=== PATIENT | female | born 1980 | race American Indian/Alaskan Native ===

== ENCOUNTER 2019-07-24 09:23 | Inpatient (IN) | payer BC, MEDICAID ==
[2019-07-24] MEDS ORDERED: fentaNYL 100 MCG/2 ML INJ IV PRN (10:30)
[2019-07-24] MEDS ORDERED: TERBUTALINE 1 MG/1 ML INJ SUB-Q PRN (10:30)
[2019-07-24] MEDS ORDERED: ePHEDrine SULFATE 50 MG/1 ML INJ IV PRN (10:30)
[2019-07-24] MEDS ORDERED: LIDOCAINE (2%) 20 MG/1 ML VIAL 20 ML MDV INFILTRATI ONE (10:30)
[2019-07-24] MEDS ORDERED: MAGNESIUM SULFATE 4 GM/100 ML BAG IV ONE (10:36)
--- NOTE | 2019-07-24 10:40 | History and Physical Report ---
History of Present Illness Date of examination: 07/24/19 Date of admission: 07/24/2019 Chief complaint: Contractions History of present illness: 38 year old presents to L&D in early labor with elevated blood pressures. 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 Was able to look records up via computer but no hard copy of records is available. LMP unknown. EDC by US is 07/21/2019. significant for the following: AMA, polyhydramnios, rubella nonimmune, vitamin D deficiency (supplemented with vitamin D), GBS positive, anemia, trichomonas (OSMANY negative). labs are as follows: O+, antibody screen negative, rubella nonimmune, hepatitis B surface antigen negative, HIV negative, RPR nonreactive, pap negative, AFP negative, NIPT negative, hemoglobin electrophoresis AA, gonorrhea negative, chlamydia negative, GBS positive, trichomonas positive/negative, 1 hour sugar test 134. 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 ). denies: abnormal PAP smear, chlamydia, gonorrhea, hepatitis B, hepatitis C, herpes, HIV, syphilis Family/Genetic History: none Social history: single, full code. denies: smoking, alcohol abuse, prescription drug abuse, IV drug use - Obstetrical History Expected Date of Delivery: 07/21/19 Actual Gestation: 40 Week(s) 3 Day(s) : 3 Para: 0 Hx # Term Pregnancies: 0 Number of Pregnancies: 0 Spontaneous Abortions: 0 Induced : 2 Number of Living Children: 0 Medications and Allergies Allergies Allergy/AdvReac Type Severity Reaction Status Date / Time No Known Allergies Allergy Unverified 07/24/19 10:42 Active Meds: Active Medications Ephedrine Sulfate (Ephedrine Sulfate) 10 mg IV Q2M PRN PRN Reason: Hypotension Fentanyl (Sublimaze) 100 mcg IV Q2H PRN PRN Reason: Labor Pain Hydralazine HCl (Apresoline) 5 mg IV ONCE ONE Stop: 07/24/19 10:41 Oxytocin/Sodium Chloride (Pitocin/Ns 20 Unit/1000ml Drip) 20 units in 1,000 mls @ 125 mls/hr IV DIRECT [place] Lactated Ringer's (Lactated Ringers) 1,000 mls @ 125 mls/hr IV DIRECT [place] Ampicillin Sodium (Ampicillin/Ns 2 Gm/100 Ml) 2 gm in 100 mls @ 100 mls/hr IV ONCE ONE; Protocol Stop: 07/24/19 11:29 Ampicillin Sodium (Ampicillin/Ns 1 Gm/50 Ml) 1 gm in 50 mls @ 100 mls/hr IV Q4HR [place]; Protocol Magnesium Sulfate (Magnesium Sulfate 40gm/1000ml) 40 gm in 1,000 mls @ 50 mls/hr IV DIRECT [place] Magnesium Sulfate (Magnesium Sulfate 4gm/100ml) 4 gm in 100 mls @ 300 mls/hr IV ONCE ONE Stop: 07/24/19 10:55 Labetalol HCl (Labetalol) 200 mg PO BID [place] Lidocaine (Xylocaine 2%) 20 ml INFILTRATI ONCE ONE Stop: 07/24/19 10:31 Terbutaline Sulfate (Brethine) 0.25 mg SUB-Q ONCE PRN PRN Reason: Hyperstimulation/Hypertonicity Review of Systems All systems: negative (contractions) - Vital Signs Vital signs: Vital Signs Temp Pulse Resp BP Pulse Ox 98.4 F 78 16 152/87 100 07/24/19 09:37 07/24/19 09:37 07/24/19 09:37 07/24/19 09:37 07/24/19 09:37 Temp Pulse Resp BP Pulse Ox 98.4 F 75 16 195/92 99 07/24/19 09:37 07/24/19 10:34 07/24/19 09:37 07/24/19 10:23 07/24/19 10:34 - Physical Exam Cardiovascular: Regular rate, Normal S1, Normal S2 Lungs: Positive: Clear to auscultation Abdomen: Positive: normal appearance, soft. Negative: distention, tenderness, guarding, rigidity Genitourinary (Female): Positive: normal external genitalia, normal perenium. Negative: perineal/vulvar lesions (no lesions seen on careful exam with bright light upon admission) Vagina: Positive: normal moisture Uterus: Positive: enlarged (S=D) Anus/Rectum: Positive: normal perianal skin Extremities: Positive: normal. Negative: tenderness, edema - Obstetrical FHR: category 2 FHR comments: FHR deceleration noted in triage, to 80s and 90s, lasting several minutes with gradual return to baseline. Now FHR baseline is 145-150 with moderate variability and accelerations. Uterine Contraction Monitor Mode: External Cervical Dilatation: 2 Cervical Effacement Percentage: 70 station: -3 Uterine Contraction Pattern: Regular Uterine Contraction Intensity: Moderate Results Result Diagrams: 07/24/19 10:30 07/24/19 10:30 All other labs normal. Assessment and Plan A: at 40 weeks, 3 days gestation. Early labor. Elevated blood pressures, some severe range. AMA. FHR deceleration. P: Admit. Preeclamptic labs, urine drug screen. IV Hydralazine. Oral Labetalol. Magnesium Sulfate. Bedrest, SCDs, Waggoner catheter. Continuous EFM. Pitocin augmentation of labor. Discussed with patient risks and benefits of Pitocin augmentation of labor. Patient consented to Pitocin augmentation of labor. Consulted with Dr. Larkin re: this patient, who states he agrees with above plan.
[2019-07-24] MEDS ORDERED: AMPICILLIN/NS 2 GM/100 ML 2 GM/100 ML BAG IV ONE (10:48)
[2019-07-24] MEDS ORDERED: hydrALAZINE 20 MG/1 ML INJ IV ONE (11:00)
[2019-07-24] MEDS ORDERED: MAGNESIUM SULFATE 40GM/1000ML 40 GM/1,000 ML BAG IV SCH (11:00)
[2019-07-24] MEDS ORDERED: LACTATED RINGERS 1,000 ML IV SCH ×2 (11:00→23:00)
[2019-07-24] MEDS ORDERED: OXYTOCIN 20 UNIT/1000ML DRIP 20 UNITS/1,000 ML BAG IV SCH ×2 (11:00→23:00)
[2019-07-24 11:12] LABS: Hematocrit 39.6 % (30.3-42.9); Hemoglobin 13.4 gm/dl (10.1-14.3); Mean Corpuscular HGB Conc 34 % (30-34); Mean Corpuscular Volume 91 fl (79-97); Red Blood Count 4.34 M/mm3 (3.65-5.03); Red Cell Distribution Width 13.2 % (13.2-15.2)
[2019-07-24 11:36] LABS: Alanine Aminotransferase 43 units/L (7-56); Albumin 3.7 g/dL (3.9-5); BUN/Creatinine Ratio 14; Blood Urea Nitrogen 7 mg/dL (7-17); Calcium 8.9 mg/dL (8.4-10.2); Hemolysis Index 36; Uric Acid 6.6 mg/dL (3.5-7.6)
[2019-07-24 11:46] LABS: Bilirubin,Urine NEG (Negative); Blood,Urine SM (Negative); Color,Urine Straw (Yellow); Mucus,Urine FEW /HPF; Protein,Urine <15 mg/dL mg/dL (Negative); Urobilinogen,Urine < 2.0 mg/dL (<2.0); WBC,Urine < 1.0 /HPF (0.0-6.0)
[2019-07-24 11:53] LABS: Amphetamine Screen,Urine PRESUMPTIVE NEGATIVE; Benzodiazepines Screen,Urine PRESUMPTIVE NEGATIVE; Cannabinoid Screen,Urine PRESUMPTIVE NEGATIVE; Cocaine Screen,Urine PRESUMPTIVE NEGATIVE; Methadone Screen,Urine PRESUMPTIVE NEGATIVE; Opiate Screen,Urine PRESUMPTIVE NEGATIVE
[2019-07-24 12:08] LABS: Platelet Count 142 K/mm3 (140-440)
[2019-07-24] MEDS ORDERED: OXYTOCIN DRIP 30 UNITS/500 ML BAG IV SCH (13:00)
[2019-07-24] MEDS: AMPICILLIN/NS 1 GM/50 ML 1 GM/50 ML BAG IV SCH ×2 (17:00→21:20)
[2019-07-24] MEDS ORDERED: SODIUM CHLORIDE P/F VIAL 10 ML 10 ML ONE (20:39)
[2019-07-24] MEDS ORDERED: DEXMEDETOMIDINE 200 MCG/2 ML VIAL IV ONE (20:39)
[2019-07-24] MEDS ORDERED: NALOXONE 2 MG/2 ML INJ IV PRN (20:41)
--- NOTE | 2019-07-24 20:42 | Anesthesia Consultation ---
Anesthesia Consult and Med Hx Date of service: 07/24/19 - Airway Anesthetic Teeth Evaluation: Good ROM Head & Neck: Adequate Mental/Hyoid Distance: Adequate Mallampati Class: Class II Intubation Access Assessment: Probably Good - Pulmonary Exam CTA: Yes - Cardiac Exam Cardiac Exam: RRR - Pre-Operative Health Status ASA Pre-Surgery Classification: ASA3 Proposed Anesthetic Plan: Epidural - Pulmonary Hx Asthma: No - Cardiovascular System Hx Hypertension: Yes (PIH) - Central Nervous System Hx Seizures: No Hx Psychiatric Problems: No - Endocrine Hx Renal Disease: No Hx Hypothyroidism: No Hx Hyperthyroidism: No - Hematic Hx Anemia: No Hx Sickle Cell Disease: No - Other Systems Hx Alcohol Use: No
[2019-07-24] MEDS ORDERED: fentaNYL-BUPIV 2 MCG/ML-0.125% 200 MCG/100 ML BAG EPIDURAL SCH (21:00)
[2019-07-24] MEDS: ePHEDrine SULFATE 50 MG/1 ML INJ IV PRN ×2 (22:10→22:20)
[2019-07-24] MEDS ORDERED: AZITHROMYCIN 500 MG in SODIUM CHLORIDE 0.9% 250ML 250 ML IV ONE (22:33)
[2019-07-24] MEDS ORDERED: BICITRA ORAL LIQD 30ML PO ONE (22:33)
[2019-07-24] MEDS ORDERED: METOCLOPRAMIDE 10 MG/2 ML INJ IV ONE (22:33)
[2019-07-24] MEDS ORDERED: FAMOTIDINE 20 MG/2 ML INJ IV ONE (22:33)
[2019-07-24] MEDS ORDERED: ceFAZolin/Water 2 GM/20 ML 2 GM/20 ML SYRINGE IV NR (23:00)
--- NOTE | 2019-07-25 00:12 | Event Note ---
Date: 07/25/19 Patient had low BPs after epidural placement, followed by several late FHR decelerations beginning at 21:52. Patient was positioned in left lateral, then right lateral positions. IV fluid bolus was given and ephedrine was given. Oxygen was applied per face mask at 10 LPM. Pitocin was turned off. Dr. Larkin was called to evaluate patient and FHR tracing. Dr. Larkin evaluated patient at 22:11. BPs improved with ephedrine and IV fluids and FHR returned to normal. FHR is still reassuring but BPs are again low. Cervix is 3/100/-[address] Larkin re: patient and low BPs despite interventions. Dr. Larkin states he will deliver patient by section. Discussed this plan with patient and family and OR team notified. Magnesium sulfate has been discontinued per MD order.
[2019-07-25] MEDS ORDERED: SODIUM BICARB 8.4% 50 MEQ/50 ML VIAL IV ONE (00:23)
[2019-07-25] MEDS ORDERED: LIDOCAINE MPF (2%) 20 MG/1 ML VIAL 5 ML ONE (00:23)
[2019-07-25] MEDS ORDERED: OXYTOCIN 10 UNIT/1 ML INJ ONE (00:49)
[2019-07-25] MEDS ORDERED: KETOROLAC 30 MG/1 ML INJ ONE (00:49)
--- NOTE | 2019-07-25 01:33 | Operative Report ---
Operative Report Operative Report: Date of procedure: 07/25/2019 Pre-operative diagnosis: 1. Intrauterine at 40 3/7 weeks 2. Preec lampsia 3. Non-reassuring surveillance Post-operative diagnosis: Same Procedure name(s): Primary low transverse section Surgeon: Arsalan Larkin MD Tree Surgeon Helper: None Anesthesia: Spinal anesthesia by Néstor Jarquin CRNA EBL: 1000 mL's Findings: A 3084 gm male infant Apgars 8 at 1 minute 9 at 5 minutes. Normal uterus with normal tubes and ovaries bilaterally. No evidence of abruption. Procedure: After the patient was prepped and draped in usual sterile fashion, and after satisfactory level of spinal anesthesia was obtained, the skin knife was used to make a transverse skin incision. The incision was incised down to layer of the fascia, which was nicked in the midline and extended laterally using the Bovie cautery. The rectus muscles were dissected off the rectus fascia both superiorly and inferiorly. The rectus bellies in the midline, and the peritoneum was entered under direct visualization. The peritoneal incision was extended superiorly and inferiorly, a bladder flap was created and the bladder blade was then placed. The uterus was scored in a curvilinear linear fashion, entered in the midline revealing clear amniotic fluid. The infant's head was delivered onto the surgical field, and the oropharynx and nasopharynx were bulb suctioned. The rest of the infants body delivered and the cord was doubly clamped and cut and the infant was handed to the awaiting respiratory team. The placenta was manually removed from the uterus, and the uterus removed from its normal anatomical position. After gentle uterine lavage, the incision was inspected and found to be without extensions. It was therefore closed in 2 layers using 0 Vicryl suture in a running interlocking fashion, the second layer imbricating the first. After good hemostasis was achieved, copious amounts or irrigation was performed, and the gutters were suctioned free of blood and blood clots. The uterus was then returned to its normal anatomical position, and the peritoneum was re- approximated using 3-0 Vicryl suture in a running interlocking fashion, and then the rectus muscles were loosely re-approximated using 3-0 Vicryl suture in a [id number] configuration. The fascia was then re-approximated using 0 Vicryl suture in running interlocking fashion. The subcutaneous layer was made hemostatic using Bovie cautery, and the skin edges re-approximated using 4-0 Vicryl suture in a sub-cuticular fashion. Patient tolerated the procedure well was transported to recovery in stable condition.
[2019-07-25] MEDS ORDERED: ACETAMINOPHEN 325 MG TAB PO PRN (01:36)
[2019-07-25] MEDS ORDERED: WITCH HAZEL/ GLYCERIN PAD TP PRN (01:36)
[2019-07-25] MEDS ORDERED: SIMETHICONE 80 MG CHEW TAB PO PRN (01:36)
[2019-07-25] MEDS ORDERED: NALOXONE 0.4 MG/1 ML INJ IV PRN (01:36)
[2019-07-25] MEDS ORDERED: MAGNESIUM HYDROXIDE (MOM) ORAL LIQD UDC PO PRN (01:36)
[2019-07-25] MEDS ORDERED: IBUPROFEN 800 MG TAB PO PRN (01:36)
[2019-07-25] MEDS ORDERED: PROMETHAZINE 25 MG RECT SUPP PR PRN (01:36)
[2019-07-25] MEDS ORDERED: SENNOSIDES 8.6 MG TAB PO PRN (01:36)
[2019-07-25] MEDS ORDERED: ONDANSETRON 4 MG/2 ML INJ IV PRN (01:36)
[2019-07-25] MEDS ORDERED: LANOLIN/ZINC/DIMETHICONE (LANSINOH) 7 GM TP PRN (01:36)
[2019-07-25] MEDS ORDERED: OXYTOCIN 20 UNIT/1000ML DRIP 20 UNITS/1,000 ML BAG IV SCH (02:00)
[2019-07-25] MEDS ORDERED: D5W/LACTATED RINGERS 1,000 ML IV SCH (02:00)
--- NOTE | 2019-07-25 02:03 | Post Anesthesia Evaluation ---
- Post Anesthesia Evaluation Patient Participated: Yes Airway Patent: Yes Stable Respiratory Function: Yes Nausea/Vomiting: No Temp > 96.8F: Yes Pain Manageable: Yes Adequeate Hydration: Yes Anesthesia Complications: No Block Receding Appropriately: Yes
[2019-07-25] MEDS ORDERED: LACTATED RINGERS 1,000 ML ONE (02:52)
[2019-07-25] MEDS: KETOROLAC 30 MG/1 ML INJ IV PRN ×3 (08:34→21:21)
[2019-07-25] MEDS: ceFAZolin/NS 1 GM/50 ML 1 GM/50 ML BAG IV SCH ×2 (08:48→16:09)
[2019-07-25 12:27] LABS: Hematocrit 26.1 % (30.3-42.9)
[2019-07-25] MEDS: HYDROcodone/ACETAMINOPHEN 5-325 MG TAB PO PRN (13:24)
[2019-07-25] MEDS: FERROUS SULFATE 325 MG TAB PO SCH ×2 (13:36→18:16)
[2019-07-25] MEDS: PRENATAL VIT27-FE FUMARATE-FOLIC ACID VIT TAB PO SCH ×2 (13:36→18:16)
[2019-07-25] MEDS: oxyCODONE /ACETAMINOPHEN 5-325MG TAB PO PRN (23:38)
[2019-07-26] MEDS ORDERED: MEASLES, MUMPS & RUBELLA 12,500 UNIT/0.5 ML VACCINE SUB-Q ONE (01:37)
[2019-07-26] MEDS ORDERED: TETANUS,DIPH,PERTUSS(ACELL) VACCINE 0.5 ML SYRINGE IM ONE (01:38)
[2019-07-26] MEDS: oxyCODONE /ACETAMINOPHEN 5-325MG TAB PO PRN ×3 (05:27→17:54)
[2019-07-26] MEDS: FERROUS SULFATE 325 MG TAB PO SCH ×2 (09:37→22:03)
[2019-07-26] MEDS: PRENATAL VIT27-FE FUMARATE-FOLIC ACID VIT TAB PO SCH (09:37)
--- NOTE | 2019-07-26 10:29 | Progress Note ---
Assessment and Plan - Patient Problems (1) S/P primary low transverse Current Visit: Yes Status: Acute Plan to address problem: Continue routine PP orders Keep dressing dry and intact, remove on POD#2 Anticipate d/c home in 48 hrs (2) Anemia Current Visit: Yes Status: Acute Qualifiers: Anemia type: other cause Other causes of anemia: acute posthemorrhagic Qualified Code(s): D62 - Acute posthemorrhagic anemia Plan to address problem: Asymptomatic Continue oral daily iron supplementation as directed Iron rich diet Subjective - Subjective Date of service: 07/26/19 Principal diagnosis: S/P primary C/S; POD#1 Interval history: See admission H & P; OB operative note and PP progress notes Patient reports: appetite normal, voiding normally, pain well controlled (with medications), flatus, ambulating normally, no bowel movement [place]: doing well, bottle feeding (and ) Objective - Vital Signs Latest vital signs: Vital Signs Temp Pulse Resp BP Pulse Ox 07/26/19 05:27 18 07/26/19 03:33 18 07/26/19 02:20 98.1 F 91 H 18 115/74 99 07/25/19 23:38 18 07/25/19 21:27 98.9 F 85 20 112/71 99 07/25/19 21:21 18 07/25/19 16:12 98.9 F 79 20 120/71 99 07/25/19 11:54 99.3 F 88 20 111/69 98 Intake and Output 07/25/19 07/26/19 07/26/19 23:59 07:59 15:59 Intake Total 360 260 120 Output Total 200 Balance 160 260 120 Intake: Oral 120 120 Intake, Free Water 240 260 Output: Urine 200 Void 200 Other: Total, Intake Amount 120 120 Total, Output Amount 200 # Voids Void 1 2 1 - Exam Breasts: Present: normal Cardiovascular: Present: Regular rate Lungs: Present: Normal air movement Abdomen: Present: soft, tenderness Uterus: Present: firm, fundal height below umbilicus (U-1) Extremities: Present: normal Deep Tendon Reflex Grade: Normal +2 Incision: Present: dressed (no shawdow drainage or bleeding noted) - Labs Labs: Abnormal lab results 07/25/19 Range/Units 12:04 Hgb 9.0 L D (10.1-14.3) gm/dl Hct 26.1 L D (30.3-42.9) %
[2019-07-26] MEDS: IBUPROFEN 800 MG TAB PO SCH (16:40)
[2019-07-26] MEDS: HYDROcodone/ACETAMINOPHEN 5-325 MG TAB PO PRN (22:06)
[2019-07-27] MEDS: IBUPROFEN 800 MG TAB PO SCH ×4 (00:06→23:37)
[2019-07-27] MEDS: PRENATAL VIT27-FE FUMARATE-FOLIC ACID VIT TAB PO SCH (09:36)
--- NOTE | 2019-07-27 12:48 | Progress Note ---
Assessment and Plan A: POD #2 Preeclampsia Asymptomatic Anemia P: Follow Routine Postop Oders Continue FeSO4 as ordered Replace Steri-strips Anticipate D/C home in AM Subjective - Subjective Date of service: 07/27/19 Principal diagnosis: S/P primary C/S; POD#1 Patient reports: appetite normal, voiding normally, pain well controlled, flatus, ambulating normally [place]: doing well, bottle feeding (and ) Objective - Vital Signs Latest vital signs: Vital Signs Temp Pulse Resp BP BP Pulse Ox 07/27/19 08:21 98.1 F 75 18 106/66 99 07/27/19 00:26 97.8 F 83 18 123/72 99 07/26/19 16:45 97.5 F L 79 20 109/64 Intake and Output 07/26/19 07/27/19 07/27/19 22:59 06:59 14:59 Intake Total 240 Balance 240 Intake: Oral 240 Other: Total, Intake Amount 240 # Voids Void 1 - Exam Breasts: Present: normal Cardiovascular: Present: Regular rate Lungs: Present: Clear to auscultation, Normal air movement Abdomen: Present: normal appearance, soft, normal bowel sounds Uterus: Present: normal, firm, fundal height below umbilicus Extremities: Present: normal Incision: Present: intact, other (moderate amount of blood on steri strips; incision well approximated; oozing a small amount of blood)
[2019-07-27] MEDS: oxyCODONE /ACETAMINOPHEN 5-325MG TAB PO PRN ×2 (12:54→21:24)
[2019-07-27] MEDS: FERROUS SULFATE 325 MG TAB PO SCH (21:24)
[2019-07-28] MEDS: oxyCODONE /ACETAMINOPHEN 5-325MG TAB PO PRN ×2 (03:11→11:15)
[2019-07-28] MEDS: IBUPROFEN 800 MG TAB PO SCH (08:06)
[2019-07-28] MEDS: FERROUS SULFATE 325 MG TAB PO SCH (11:14)
[2019-07-28] MEDS: PRENATAL VIT27-FE FUMARATE-FOLIC ACID VIT TAB PO SCH (11:15)
--- NOTE | 2019-07-28 11:22 | Discharge Summary ---
Providers - Providers Date of Admission: 07/24/19 11:37 Date of discharge: 07/28/19 Attending physician: RAJIV FITCH MD Primary care physician: RAJIV FITCH MD Hospitalization Delivery: Incision: normal, erythematous (There is some bruising around the incision but no indurations were palpable. The bruising was pronounced over the mons pubis and labia and again no indurations were felt. The mons and labia were edematous from gravity in a semirecumbent position.), dry, intact Disposition: DC-30 STILL A PATIENT Plan - Discharge Medications Prescriptions: oxyCODONE /ACETAMINOPHEN [Percocet 5/325] 1 tab PO Q6HR PRN #30 tablet PRN Reason: Pain - Provider Discharge Summary Additional instructions: [] Smoking cessation referral if applicable(refer to patient education folder for contact #) [] Refer to [facility]'s [facility] Booklet Call your doctor immediately for: * Fever > 100.5 * Heavy vaginal bleeding ( >1 pad per hour) * Severe persistent headache * Shortness of breath * Reddened, hot, painful area to leg or breast * Drainage or odor from incision. * Keep incision clean and dry at all times and follow doctor's instructions regarding bathing/showering - Follow up plan Follow up: RAJIV FITCH MD [Primary Care Provider] - 7 Days
[2019-07-28] MEDS: HYDROcodone/ACETAMINOPHEN 5-325 MG TAB PO PRN (13:00)
[2019-07-28 14:03] VITALS: BP 102/62
== END 2019-07-28 14:07 | disposition home or self-care (01) | DRG 787 ==
LOC: TRG 09:23 → LD 11:37 → OB 07-25 04:31
PROVIDERS: ADMIT Obstetrics & Gynecology; ATTEND Obstetrics & Gynecology
PROC: 10D00Z1 Extraction of Products of Conception, Low, Open Approach (ICD-10-PCS; principal; 2019-07-25)
PROC: 3E0234Z Introduction of Serum, Toxoid and Vaccine into Muscle, Percutaneous Approach (ICD-10-PCS; 2019-07-26)
PROC: 3E0134Z Introduction of Serum, Toxoid and Vaccine into Subcutaneous Tissue, Percutaneous Approach (ICD-10-PCS; 2019-07-26)
DX: O99.824 Streptococcus B carrier state complicating childbirth (principal); D62 Acute posthemorrhagic anemia; O14.94 Unspecified pre-eclampsia, complicating childbirth; O13.4 Gestational [pregnancy-induced] hypertension without significant proteinuria, complicating childbirth; O76 Abnormality in fetal heart rate and rhythm complicating labor and delivery; O90.81 Anemia of the puerperium; Z23 Encounter for immunization; Z37.0 Single live birth; Z3A.40 40 weeks gestation of pregnancy
CPT/HCPCS: 36415; 80053; 80307; 81001; 83615; 83735; 84550; 85014; 85018; 85027; 86850; 86900; 86901; G0378; J0290; J0456; J0690; J1885; J2590; J2765; J3010; J3105; J3475; J3490; J7050; J7120; J7121

== ENCOUNTER 2019-07-31 00:08 | Emergency (ER) | payer BC, MEDICAID ==
--- NOTE | 2019-07-31 02:06 | Emergency Department Report ---
ED General Adult HPI - General Chief complaint: Wound/Laceration Stated complaint: C-SETION 6 DAYS AGO,BRUSING AND PAIN Time Seen by Provider: 07/31/19 01:57 Source: patient Mode of arrival: Ambulatory Limitations: No Limitations - History of Present Illness Initial comments: Mrs. Ochoa is a very pleasant 38 yo female who presents with brusings right a bdomen 6 days s/p section on 07/25/2019. According to Dr. Larkin's operative note, Mrs. Ochoa had preeclampsia. She otherwise did well. Pain controlled with Percocet. She has noted bruising in pelvis and right lower abdomen. No bleeding from the wound. No dizziness. No headache. No chest pain. No shortness of breath. -: Gradual, days(s) (2) Location: abdomen, pelvis Quality: aching (pain), other (new bruising) Consistency: constant Improves with: none Worsens with: none Associated Symptoms: denies other symptoms Treatments Prior to Arrival: none - Related Data Previous Rx's Medication Instructions Recorded Last Taken Type oxyCODONE /ACETAMINOPHEN [Percocet 1 tab PO Q6HR PRN #30 tablet 07/25/19 Unknown Rx 5/325] Allergies Allergy/AdvReac Type Severity Reaction Status Date / Time No Known Allergies Allergy Unverified 07/24/19 10:42 ED Review of Systems ROS: Stated complaint: C-SETION 6 DAYS AGO,BRUSING AND PAIN Other details as noted in HPI Comment: All other systems reviewed and negative Constitutional: denies: fever, malaise Respiratory: denies: cough Cardiovascular: denies: chest pain Gastrointestinal: abdominal pain Hematological/Lymphatic: easy bruising ED Past Medical Hx - Past Medical History Previous Medical History?: Yes Hx Hypertension: Yes (PIH) Hx Diabetes: No Hx Deep Vein Thrombosis: No Hx Renal Disease: No Hx Sickle Cell Disease: No Hx Seizures: No Hx Asthma: No Hx HIV: No - Surgical History Past Surgical History?: Yes Additional Surgical History: - Social History Smoking Status: Never Smoker Substance Use Type: None - Medications Home Medications: Home Medications Medication Instructions Recorded Confirmed Last Taken Type oxyCODONE /ACETAMINOPHEN [Percocet 1 tab PO Q6HR PRN #30 tablet 07/25/19 Unkno wn Rx 5/325] ED Physical Exam - General Limitations: No Limitations General appearance: alert, in no apparent distress - Head Head exam: Present: atraumatic, normocephalic - Eye Eye exam: Present: normal appearance - ENT ENT exam: Present: mucous membranes moist - Neck Neck exam: Present: normal inspection, full ROM. Absent: tenderness, meni ngismus - Respiratory Respiratory exam: Present: normal lung sounds bilaterally. Absent: respiratory distress, wheezes, rales, rhonchi - Cardiovascular Cardiovascular Exam: Present: regular rate, normal rhythm, normal heart sounds. Absent: systolic murmur, diastolic murmur, rubs, gallop - GI/Abdominal GI/Abdominal exam: Present: soft, distended, normal bowel sounds, other (c-sec tion incision dried blood steristrips in place ecchymosis pubic region and right lower quadrant). Absent: tenderness, guarding, rebound - Extremities Exam Extremities exam: Present: normal inspection - Neurological Exam Neurological exam: Present: alert, oriented X3 - Psychiatric Psychiatric exam: Present: normal affect, normal mood - Skin Skin exam: Present: warm, dry, intact, normal color. Absent: rash ED Course Vital Signs 07/31/19 00:12 Temperature 98.6 F Pulse Rate 87 Respiratory 18 Rate Blood Pressure 136/82 O2 Sat by Pulse 98 Oximetry ED Medical Decision Making - Lab Data Result diagrams: 07/31/19 02:08 07/31/19 02:08 Laboratory Results - last 24 hr 07/31/19 07/31/19 02:08 02:08 WBC 5.8 RBC 3.19 L Hgb 9.9 L Hct 29.7 L MCV 93 MCH 31 MCHC 33 RDW 13.6 Plt Count 137 L Lymph % (Auto) 18.1 Harper % (Auto) 9.3 H Eos % (Auto) 0.8 Baso % (Auto) 0.3 Lymph # 1.0 L Harper # 0.5 Eos # 0.0 Baso # 0.0 Seg Neutrophils % 71.5 H Seg Neutrophils # 4.2 PT 14.3 INR 1.12 APTT 30.3 Laboratory Results - last 24 hr 07/31/19 07/31/19 07/31/19 02:08 02:08 02:08 WBC 5.8 RBC 3.19 L Hgb 9.9 L Hct 29.7 L MCV 93 MCH 31 MCHC 33 RDW 13.6 Plt Count 137 L Lymph % (Auto) 18.1 Harper % (Auto) 9.3 H Eos % (Auto) 0.8 Baso % (Auto) 0.3 Lymph # 1.0 L Harper # 0.5 Eos # 0.0 Baso # 0.0 Seg Neutrophils % 71.5 H Seg Neutrophils # 4.2 PT 14.3 INR 1.12 APTT 30.3 Sodium 140 Potassium 4.4 Chloride 102.3 Carbon Dioxide 26 Anion Gap 16 BUN 13 Creatinine 0.5 L Estimated GFR > 60 BUN/Creatinine Ratio 26 Glucose 95 Calcium 9.4 Total Bilirubin 0.30 AST 50 H ALT 43 Alkaline Phosphatase 98 Total Protein 7.1 Albumin 3.9 Albumin/Globulin Ratio 1.2 - Medical Decision Making Mrs. Ochoa presents with bruising after . Normal platelet count, normal PT PTT. Mild anemia. I do not suspect DIC or intra-abdominal/pelvic hemorrhage. Mrs. Ochoa given return precautions. Dc'd home Critical care attestation.: If time is entered above; I have spent that time in minutes in the direct care of this critically ill patient, excluding procedure time. ED Disposition Clinical Impression: Ecchymosis, Postoperative pain Disposition: DC-01 TO HOME OR SELFCARE Is pt being admited?: No Does the pt Need Aspirin: No Condition: Stable Additional Instructions: Please see Dr. Larkin on Thursday. Return to ER sooner if bruising worsens or you developed worse pain or bleeding from wound. Referrals: MARGARITA LARKIN MD [Staff Physician] - 3-5 Days
[2019-07-31 02:39] LABS: Basophils % (Auto) 0.3 % (0.0-1.8); Eosinophils % (Auto) 0.8 % (0.0-4.3); Hematocrit 29.7 % (30.3-42.9); Hemoglobin 9.9 gm/dl (10.1-14.3); Lymphocytes % (Auto) 18.1 % (13.4-35.0); Mean Corpuscular HGB Conc 33 % (30-34); Mean Corpuscular Volume 93 fl (79-97); Monocytes # (Auto) 0.5 K/mm3 (0.0-0.8); Monocytes % (Auto) 9.3 % (0.0-7.3); Platelet Count 137 K/mm3 (140-440); Red Blood Count 3.19 M/mm3 (3.65-5.03); Red Cell Distribution Width 13.6 % (13.2-15.2)
[2019-07-31 02:50] LABS: INR 1.12 (0.87-1.13); Partial Thromboplastin Time 30.3 Sec. (24.2-36.6)
[2019-07-31 03:05] LABS: Alanine Aminotransferase 43 units/L (7-56); Albumin 3.9 g/dL (3.9-5); BUN/Creatinine Ratio 26; Blood Urea Nitrogen 13 mg/dL (7-17); Calcium 9.4 mg/dL (8.4-10.2); Hemolysis Index 1
[2019-07-31 04:09] VITALS: BP 129/72
== END 2019-07-31 04:10 | disposition home or self-care (01) ==
LOC: ED 00:08
DX: K91.870 Postprocedural hematoma of a digestive system organ or structure following a digestive system procedure (principal); I10 Essential (primary) hypertension; Z79.899 Other long term (current) drug therapy
CPT/HCPCS: 36415; 80053; 85025; 85610; 85730

== ENCOUNTER 2019-08-01 11:20 | Emergency (ER) | payer BC, MEDICAID ==
--- NOTE | 2019-08-01 12:07 | Emergency Department Report ---
Blank Doc - Documentation Documentation: 38-year-old female that presents with surgical site bleeding. Had 6 days ago. This initial assessment/diagnostic orders/clinical plan/treatment(s) is/are subject to change based on patient's health status, clinical progression and re- assessment by fellow clinical providers in the ED. Further treatment and workup at subsequent clinical providers discretion. Patient/guardians urged not to elope from the ED as their condition may be serious if not clinically assessed and managed. Initial orders include: 1- Patient sent to Main for further evaluation and treatment 2- labs 3- UA
[2019-08-01 14:16] LABS: Basophils % (Auto) 0.2 % (0.0-1.8); Eosinophils % (Auto) 0.5 % (0.0-4.3); Hematocrit 28.5 % (30.3-42.9); Hemoglobin 9.6 gm/dl (10.1-14.3); Lymphocytes # (Auto) 1.1 K/mm3 (1.2-5.4); Lymphocytes % (Auto) 17.3 % (13.4-35.0); Mean Corpuscular HGB Conc 34 % (30-34); Mean Corpuscular Volume 93 fl (79-97); Monocytes # (Auto) 0.6 K/mm3 (0.0-0.8); Monocytes % (Auto) 9.3 % (0.0-7.3); Platelet Count 150 K/mm3 (140-440); Red Blood Count 3.08 M/mm3 (3.65-5.03)
[2019-08-01 14:27] LABS: BUN/Creatinine Ratio 20; Blood Urea Nitrogen 8 mg/dL (7-17); Calcium 9.3 mg/dL (8.4-10.2); Hemolysis Index 6
[2019-08-01] MEDS ORDERED: SILVER NITRATE APPLICATOR 1 EA TP ONE (14:47)
[2019-08-01] MEDS ORDERED: LIDOCAINE 2%/EPINEPHRINE 1:100,000 VIAL (20 ML) INFILTRATI ONE (14:47)
--- NOTE | 2019-08-01 14:48 | Emergency Department Report ---
ED General Adult HPI - General Chief complaint: Skin/Abscess/Foreign Body Stated complaint: BLEEDING/POST C SECTION Time Seen by Provider: 08/01/19 12:04 Source: patient, RN notes reviewed, old records reviewed Mode of arrival: Ambulatory Limitations: No Limitations - History of Present Illness Initial comments: [employer] physician: Dr. Porfirio Larkin This is a pleasant 38-year-old female, presenting to the ER with a complaint of painless site bleeding, which started this morning. She denies additional complaints. 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 In the emergency room, was found to have small oozing noted from the left lateral aspect of her site. Silver nitrate cautery was applied, and then the wound was infiltrated with lidocaine with epinephrine, 3 mL, and then 2 interrupted 4-0 monofilament sutures were placed, which stop her bleeding. A pressure dressing was applied, and the patient readiness for discharge. The patient was observed in the ER for over an hour after her procedure was completed, with no additional bleeding noted. We contacted her applications chemist, Dr. Larkin, who indicated that his group did see the patient later on this week for follow-up. During the entire history and physical examination, chaperoned by nurse Maria M Hu. -: Sudden Consistency: now resolved Improves with: other Worsens with: other - Related Data Previous Rx's Medication Instructions Recorded Last Taken Type oxyCODONE /ACETAMINOPHEN [Percocet 1 tab PO Q6HR PRN #30 tablet 07/25/19 Unknown Rx 5/325] Allergies Allergy/AdvReac Type Severity Reaction Status Date / Time No Known Allergies Allergy Unverified 07/24/19 10:42 ED Review of Systems ROS: Stated complaint: BLEEDING/POST C SECTION Other details as noted in HPI Constitutional: denies: fever Eyes: denies: eye discharge ENT: denies: congestion Cardiovascular: denies: edema, syncope Gastrointestinal: denies: nausea, vomiting Genitourinary: denies: dysuria Musculoskeletal: myalgia Skin: other Neurological: denies: weakness Hematological/Lymphatic: denies: easy bleeding ED Past Medical Hx - Past Medical History Previous Medical History?: No Hx Hypertension: Yes (PIH) Hx Diabetes: No Hx Deep Vein Thrombosis: No Hx Renal Disease: No Hx Sickle Cell Disease: No Hx Seizures: No Hx Asthma: No Hx HIV: No - Surgical History Past Surgical History?: Yes Additional Surgical History: - Social History Smoking Status: Never Smoker Substance Use Type: None - Medications Home Medications: Home Medications Medication Instructions Recorded Confirmed Last Taken Type oxyCODONE /ACETAMINOPHEN [Percocet 1 tab PO Q6HR PRN #30 tablet 07/25/19 Unknown Rx 325] ED Physical Exam - General Limitations: No Limitations General appearance: alert, anxious - Head Head exam: Present: atraumatic, normocephalic - Eye Eye exam: Present: normal appearance, PERRL. Absent: nystagmus - ENT ENT exam: Present: normal exam, normal orophraynx, mucous membranes moist, normal external ear exam - Neck Neck exam: Present: normal inspection, full ROM. Absent: tenderness, meningismus - Respiratory Respiratory exam: Present: normal lung sounds bilaterally. Absent: respiratory distress - Cardiovascular Cardiovascular Exam: Present: regular rate, normal rhythm, normal heart sounds. Absent: bradycardia, tachycardia, irregular rhythm, systolic murmur, diastolic m urmur, rubs, gallop - GI/Abdominal GI/Abdominal exam: Present: soft, tenderness, other (there is a low-lying C- section site noted, with minimal oozing noted 3 cm lateral to the umbilicus. There is no pus, streaking or crepitus. Chaperoned by nurse Hu.). Absent: distended, guarding, rebound, rigid, pulsatile mass - Extremities Exam Extremities exam: Present: normal inspection, full ROM, other (there is no palpable cord. There is a negative Homans sign. The muscular compartments are soft. There are 2+ pulses noted in the bilateral upper and lower extremities.). Absent: pedal edema, joint swelling, calf tenderness - Back Exam Back exam: Present: normal inspection. Absent: tenderness, CVA tenderness (R), CVA tenderness (L), paraspinal tenderness, vertebral tenderness - Neurological Exam Neurological exam: Present: alert, oriented X3, normal gait, other (there is no facial droop. The tongue is midline. The extraocular movements are intact bilaterally. There is 5 out of 5 strength bilateral arms and legs. Sensation is intact to light touch bilateral arms and legs.) - Psychiatric Psychiatric exam: Present: anxious - Skin Skin exam: Present: warm, dry, intact, normal color. Absent: rash ED Course Vital Signs 08/01/19 08/01/19 12:07 14:40 Temperature 98.3 F Pulse Rate 97 H Respiratory 18 Rate Blood Pressure 108/67 119/76 O2 Sat by Pulse 100 100 Oximetry - Procedure Description Procedures done: Verbal consent obtained from the patient, the surgical site was cleansed, and then cautery was attempted with silver nitrate, from an oozing wound. This was not successful. Then, using typical aseptic technique, the surgical site was infiltrated with 4 mL of 2% lidocaine with epinephrine, 2 interrupted 4-0 monofilament sutures were placed, with good hemostasis. The patient tolerated the procedure well. No untoward complications were noted. ED Medical Decision Making - Lab Data Result diagrams: 08/01/19 13:36 08/01/19 13:36 Vital Signs 08/01/19 08/01/19 12:07 14:40 Temperature 98.3 F Pulse Rate 97 H Respiratory 18 Rate Blood Pressure 108/67 119/76 O2 Sat by Pulse 100 100 Oximetry Lab Results 08/01/19 08/01/19 Range/Units 13:36 13:36 WBC 6.6 (4.5-11.0) K/mm3 RBC 3.08 L (3.65-5.03) M/mm3 Hgb 9.6 L (10.1-14.3) gm/dl Hct 28.5 L (30.3-42.9) % MCV 93 (79-97) fl MCH 31 (28-32) pg MCHC 34 (30-34) % RDW 14.0 (13.2-15.2) % Plt Count 150 (140-440) K/mm3 Lymph % (Auto) 17.3 (13.4-35.0) % [place] % (Auto) 9.3 H (0.0-7.3) % Eos % (Auto) 0.5 (0.0-4.3) % Baso % (Auto) 0.2 (0.0-1.8) % Lymph # 1.1 L (1.2-5.4) K/mm3 [place] # 0.6 (0.0-0.8) K/mm3 Eos # 0.0 (0.0-0.4) K/mm3 Baso # 0.0 (0.0-0.1) K/mm3 Seg Neutrophils % 72.7 H (40.0-70.0) % Seg Neutrophils # 4.8 (1.8-7.7) K/mm3 Sodium 141 (137-145) mmol/L Potassium 3.8 (3.6-5.0) mmol/L Chloride 104.5 (98-107) mmol/L Carbon Dioxide 25 (22-30) mmol/L Anion Gap 15 mmol/L BUN 8 (7-17) mg/dL Creatinine 0.4 L (0.7-1.2) mg/dL Estimated GFR > 60 ml/min BUN/Creatinine Ratio 20 % Glucose 105 H (65-100) mg/dL Calcium 9.3 (8.4-10.2) mg/dL - Medical Decision Making Original diagnosis, including but not limited to: Postoperative bleeding Assessment and plan: 38-year-old female with postoperative bleeding, superficial, now resolved, we discussed with her applications chemist, who will see her in the office later on this week. Her exam at this point time is unremarkable, there is no lower extremity edema, she was seen in this department recently for nonrelated symptoms, we do not suspect preeclampsia at this time, we sent laboratory studies are reviewed and appreciated. Patient endorses readiness for discharge. Critical care attestation.: If time is entered above; I have spent that time in minutes in the direct care of this critically ill patient, excluding procedure time. ED Disposition Clinical Impression: S/P primary low transverse Disposition: DC-01 TO HOME OR SELFCARE Is pt being admited?: No Does the pt Need Aspirin: No Condition: Stable Additional Instructions: Sutures should be taken out in 5-7 days. Keep pressure applied to site. Follow-up with your [employer]IST physician by the end of the week. Return to the emergency room right away with new, worsening or different symptoms, or symptoms not present on the initial emergency room evaluation. Referrals: MARGARITA LARKIN MD [Staff Physician] - 3-5 Days
[2019-08-01 17:57] VITALS: BP 121/77
== END 2019-08-01 17:55 | disposition home or self-care (01) ==
LOC: ED 11:20
DX: O34.211 Maternal care for low transverse scar from previous cesarean delivery (principal); I10 Essential (primary) hypertension; Z98.890 Other specified postprocedural states; Z79.899 Other long term (current) drug therapy
CPT/HCPCS: 36415; 80048; 85025